=== PATIENT | male | born 1965 | race Caucasian/White ===

== ENCOUNTER 2019-10-16 14:43 | Outpatient (CLI) | payer OTHER ==
--- NOTE | 2019-10-16 15:18 | RAD ---
RADIOGRAPH LUMBAR SPINE 2 VIEWS: DATE: 10/16/2019 HISTORY: 54-year-old male with low back pain COMPARISON: 09/29/2019 FINDINGS: Weightbearing views. 5 lumbar-type vertebrae. Anterior wedge compression fracture of L1 vertebral body. The rest of the vertebral body heights are maintained. Various degrees of degenerative disc disease, greatest at L5-S1. Lower lumbar facet DJD. No spondylolisthesis. No interval change. IMPRESSION: 1. Compression fracture of L1. 2. Lumbar spondylosis. 3. No interval change.
== END 2019-10-16 14:44 | disposition home or self-care (01) ==
LOC: BICRAD 14:43
PROVIDERS: ATTEND Neurological Surgery
DX: M54.5 Low back pain (principal); S32.019A Unspecified fracture of first lumbar vertebra, initial encounter for closed fracture; M47.816 Spondylosis without myelopathy or radiculopathy, lumbar region
CPT/HCPCS: 72100

== ENCOUNTER 2019-12-13 11:40 | Outpatient (CLI) | payer OTHER ==
--- NOTE | 2019-12-13 11:54 | RAD ---
Exam: 2 views lumbar spine COMPARISON: 11/09/2019 HISTORY: Follow-up compression fracture. Pain. FINDINGS: There are 5 lumbar type vertebra. Stable mild to moderate loss of vertebral body height at L1. No retropulsion. L2-L5 demonstrate preservation of vertebral body height. No spondylolisthesis or spondylolysis. Stable disc space heights Visualized sacrum and bony pelvis are intact IMPRESSION: Stable L1 compression fracture.
== END 2019-12-13 11:41 | disposition home or self-care (01) ==
LOC: BICRAD 11:40
PROVIDERS: ATTEND Neurological Surgery
DX: M54.5 Low back pain (principal); M48.56XD Collapsed vertebra, not elsewhere classified, lumbar region, subsequent encounter for fracture with routine healing
CPT/HCPCS: 72100